=== PATIENT | female | born 1945 | race Caucasian/White ===

== ENCOUNTER 2025-01-24 07:50 | Emergency (ER) | payer MEDICARE, SELFPAY ==
[2025-01-24 07:54] VITALS: BP 191/89; PULSE 96; RESP 16; TEMP 36.7; O2SAT 95; BMI 21.1
--- NOTE | 2025-01-24 08:06 | ED_ITS ---
HPI - GI Bleed 2 General: Chief complaint: GI Bleed Stated complaint: Bright red blood in stool Time Seen by Provider: 01/24/25 07:57 Source: patient Mode of arrival: ambulatory Limitations: no limitations History of Present Illness: 79-year-old female states she has had so me slight GI bleeding over the last 4 days she states she has been having some bright red blood in her stools. She denies any heavy bleeding or clots. She has had some lower abdominal cramping she rates a 5 out of 10 she denies any fevers denies any diarrhea denies any worse improving factors. Patient is not on any blood thinners Associated symptoms: Reports abdominal pain Related Data Allergies Allergy/AdvReac Type Severity Reaction Status Date / Time No Known Allergies Allergy Verified 01/24/25 07:57 Review of Systems 2 GI: Reports: abdominal pain and hematochezia Physical Exam 2 Const: COMMON NORMALS: patient oriented x3 HENMT: COMMON NORMALS: normocephalic and atraumatic HEAD & SCALP: n ormocephalic and atraumatic Eye: COMMON NORMALS: conjunctivae normal CONJUNCTIVA: Yes conjunctivae normal Neck/C-Spine: COMMON NORMALS: full ROM and supple Chest: COMMONS NORMALS: normal inspection of the chest Resp: COMMON NORMALS: normal respiratory effort Cardio: COMMON NORMALS: regular rate, regular rhythm and No murmurs present (Cardio) RATE: regular rate RHYTHM: regular rhythm GI: COMMON NORMALS: Normal to inspection, nondistended, normoactive bowel sounds present, Soft to palpation, non-tender and no masses PALPATION: Yes Soft to palpation OTHER: Rectal exam normal no fissure or hemorrhoid noted stool was brown Hemoccult was negative Extremity: COMMON NORMALS: normal to inspection and full ROM Neuro: COMMON NORMALS: patient oriented x3, moves all extremities and no focal motor deficits Psych: COMMON NORMALS: mental status grossly normal, Normal thought process present and cooperative THOUGHT PROCESS: Normal thought process present Skin: COMMON NORMALS: no rashes or lesions noted and no wounds GENERAL SKIN EXAM: no rashes or lesions noted Course 2 Vital Signs: Vital signs: Vital Signs Temperature 98.1 F 01/24/25 07:54 Pulse Rate 96 01/24/25 07:54 Respiratory Rate 16 01/24/25 07:54 Blood Pressure 191/89 01/24/25 07:54 Pulse Oximetry 95 01/24/25 07:54 Oxygen Delivery Me thod Room Air 01/24/25 07:54 MDM - GI Bleed Medical Decision Making Patient presents here with slight GI bleeding over the last 4 days. Differential includes hemorrhoids along with upper GI bleed or lower GI bleed. Patient here has no signs of upper GI bleeding her hemoglobin was normal electrolytes here are all normal abdominal exam was benign. I did a rectal exam that showed brown stool and was Hemoccult negative here. Patient could have diverticulosis or a fissure. Patient refused the CT scan has no signs of acute surgical abdomen here. I did inform her of her lab results inform her she likely needs to get a colonoscopy will get her surgery referral I informed her if she has any worsening bleeding she is to return she understands agrees to plan Medical Records I reviewed the patient's medical records. Lab Data I reviewed the patient's lab results. 01/24/25 08:04 01/24/25 08:04 Laboratory Results WBC 6.53 10^3/uL (3.29-11.43) 01/24/25 08:04 RBC 5.08 10^6/uL (3.85-5.65) 01/24/25 08:04 Hgb 15.30 g/dL (11.27-16.99) 01/24/25 08:04 Hct 45.8 % (36-47) 01/24/25 08:04 MCV 90.2 fl (85-98) 01/24/25 08:04 MCH 30.1 pg (27-33) 01/24/25 08:04 MCHC 33.4 g/dL (30-55) 01/24/25 08:04 RDW 13.0 % (12.1-15.1) 01/24/25 08:04 Plt Count 195 10^3/cmm (157-399) 01/24/25 08:04 MPV 11.0 fL (7.4-10.4) H 01/24/25 08:04 Neut % (Auto) 57.3 % 01/24/25 08:04 Lymph % (Auto) 30.8 % 01/24/25 08:04 [place] % (Auto) 7.8 % 01/24/25 08:04 Eos % (Auto) 3.1 % 01/24/25 08:04 Baso % (Auto) 0.8 % 01/24/25 08:04 Neut # (Auto) 3.75 10^3/uL (1.8-7.7) 01/24/25 08:04 Lymph # (Auto) 2.0 10^3/uL (0.8-4.8) 01/24/25 08:04 [place] # (Auto) 0.5 10^3/uL (0.2-0.9) 01/24/25 08:04 Eos # (Auto) 0.2 10^3/uL (0.0-0.8) 01/24/25 08:04 Baso # (Auto) 0.1 10^3/uL (0.0-0.1) 01/24/25 08:04 Nucleated RBC % (auto) 0 % 01/24/25 08:04 Nucleated RBCs # 0.0 /100WBC 01/24/25 08:04 PT 12.10 SECONDS (12.1-14.9) 01/24/25 08:04 INR 0.83 (0.8-1.2) 01/24/25 08:04 Sodium 142 mmol/L (136-145) 01/24/25 08:04 Potassium 3.4 mmol/L (3.5-5.1) L 01/24/25 08:04 Chloride 104 mmol/L (98-107) 01/24/25 08:04 Carbon Dioxide 28 mmol/L (22-29) 01/24/25 08:04 Anion Gap 13.4 (5-19) 01/24/25 08:04 BUN 9 mg/dL (8-23) 01/24/25 08:04 Creatinine 0.5 mg/dL (0.5-0.9) 01/24/25 08:04 GFR Calculation Not Reportable 01/24/25 08:04 Glucose 92 mg/dL (65-115) 01/24/25 08:04 Calculated Osmolality 292 mOsm/kg (285-295) 01/24/25 08:04 Calcium 9.8 mg/dL (8.5-10.5) 01/24/25 08:04 Total Bilirubin 0.3 mg/dL (0.15-1.2) 01/24/25 08:04 AST 17 U/L (0-32) 01/24/25 08:04 ALT 9 U/L (0-33) 01/24/25 08:04 Alkaline Phosphatase 100 U/L (35-105) 01/24/25 08:04 Total Protein 7.5 g/dL (6.6-8.7) 01/24/25 08:04 Albumin 4.5 g/dL (3.5-5.2) 01/24/25 08:04 Globulin 3.0 g/dL (1.3-4.6) 01/24/25 08:04 No radiology studies performed this visit Discharge Plan Discharge Patient Disposition: Home Clinical Impression: Lower gastrointestinal hemorrhage Condition: Stable Discharge Orders: Discharge ED (Routine); Ordered 01/24/25 Ordered By: Eli Oliveros Referrals: tari [Other] aarti [Other] Robson Coy MD [Physician, General Surgery] - 4-7 days Discharge Diet: Advance as tolerated Discharge Activity: Resume usual activity Patient Instructions: Rectal Bleeding (ED) Print Language: Malawian Coding Level of Care Code ED Produce Buyer for Surya Scott
[2025-01-24 08:13] LABS: Hematocrit 45.8 % (36-47); Hemoglobin 15.30 g/dL (11.27-16.99); Mean Corpuscular HGB Conc 33.4 g/dL (30-55); Mean Corpuscular Hemoglobin 30.1 pg (27-33); Mean Corpuscular Volume 90.2 fl (85-98); Nucleated Red Blood Cells % 0 %; Platelet Count 195 10^3/cmm (157-399); Red Blood Count 5.08 10^6/uL (3.85-5.65); White Blood Count 6.53 10^3/uL (3.29-11.43)
[2025-01-24 08:26] LABS: INR 0.83 (0.8-1.2); Prothrombin Time 12.10 SECONDS (12.1-14.9)
[2025-01-24 08:32] LABS: Alanine Aminotransferase 9 U/L (0-33); Albumin Level 4.5 g/dL (3.5-5.2); Alkaline Phosphatase 100 U/L (35-105); Anion Gap 13.4 (5-19); Aspartate Amino Transferase 17 U/L (0-32); Blood Urea Nitrogen 9 mg/dL (8-23); Calcium 9.8 mg/dL (8.5-10.5); Carbon Dioxide 28 mmol/L (22-29); Chloride 104 mmol/L (98-107); Creatinine Clr Calc Pharmacy 53.5055; Globulin 3.0 g/dL (1.3-4.6); Glucose 92 mg/dL (65-115); Osmolality Calculated 292 mOsm/kg (285-295); Potassium 3.4 mmol/L (3.5-5.1); Sodium 142 mmol/L (136-145); Total Protein 7.5 g/dL (6.6-8.7)
--- NOTE | 2025-01-26 08:52 | DCPLANNER ---
messaged gen surg for er f/u
== END 2025-01-24 08:50 | disposition home or self-care (01) ==
PROVIDERS: Emergency Provider Emergency Medicine
DX: K92.2 Gastrointestinal hemorrhage, unspecified (principal)
CPT/HCPCS: 80053; 85025; 85610; 99284

== ENCOUNTER → 2025-01-30 09:37 | Outpatient (BNVA) | payer MEDICARE, SELFPAY | PROVIDERS: Visit Provider Student in an Organized Health Care Education/Training Program | DX: K92.2 Gastrointestinal hemorrhage, unspecified (principal) | CPT/HCPCS: 99203 ==